=== PATIENT | female | born 1950 | race Caucasian/White ===

== ENCOUNTER 2019-10-17 12:31 | Outpatient (CLI) | payer MEDICARE, OTHER, SELFPAY ==
--- NOTE | 2019-10-17 13:00 | CT_ITS ---
WS: [id number] CT CERVICAL MYELOGRAM TECHNIQUE: CT of the cervical spine coronal and sagittal reformatted images post intrathecal administ ration of contrast. CLINICAL INFORMATION: NECK PAIN COMPARISON: None. DLP: 1737.[address] scans at [facility] use at least one of these dose optimization techniques: automat ed exposure control; mA and/or kV adjustment per patient size (includes targeted exams where dose is matched to clinical indication); or iterative reconstruction. FINDINGS: Straightening of the normal cervical lordosis. Osteopenia. Postoperative changes posterior cervical f usion at C3-C6 with interconnecting rods. Hardware appears in good position. No evidence of hardware loosening. Solid appearing dorsal fusion. Partial bony fusion across the C3-C4 C4-C5 and C5-C6 disc s paces. Wide dorsal laminectomy C3-C6. C2-C3: No significant disc bulging. Spinal canal and foramen are patent. Mild facet arthropathy. C3-C4: Posterior cervical fusion. Mild left greater than right bony foraminal narrowing. Spinal canal is patent. C4-C5: Posterior cervical fusion. Mild bilateral bony foraminal narrowing. Spinal canal is patent. C5-C6: Posterior cervical fusion. Mild left greater than right bony foraminal narrowing. Spinal canal is patent. C6-C7: Mild to moderate bilateral bony foraminal narrowing with osteophytic ridging. Spinal canal is patent. C7-T1: No significant disc bulging. Mild left greater than right bony foraminal narrowing. Spinal can al is patent. Mastoid air cells well aerated. No abnormal enhancement. Lung apices are well aerated. Enlarged bila teral cervical lymph nodes nonspecific but may be reactive. Visualized vertebral arteries are patent. Proximal internal carotid arteries are patent. CT/CT cervical spine w con [id number] IMPRESSION: 1. Straightening of the normal cervical lordosis. Prior postoperative changes dorsal cervical fusion C3-C6 with interconnecting rods. 2. No evidence of hardware loosening. Interconnecting rods are intact. Dorsal lateral fusion appears solid. 3. Partial bony fusion across the C3-C4 C4-C5 and C5-C6 disc spaces. 4. No significant central canal stenosis. Wide laminectomy defects C3-C6. 5. Mild to moderate multilevel bony foraminal narrowing worse at bilateral C6- 7. 6. Enlarged cervical lymph nodes along both cervical chains bilaterally nonspe cific but may be reactive. This could be followed up with neck CT. Largest lymp h node left jugulodigastric measuring 1.6 cm.
[2019-10-17 13:12] LABS: Blood Urea Nitrogen 11 mg/dL (8-23); Glomerular Filtration Rate 83.5 mL/min (90-130)
[2019-10-17] MEDS: iohexol 300 mg/mL 100 mL Btl IV (13:20)
== END 2019-10-17 12:32 | disposition home or self-care (01) ==
LOC: RADWPI 12:35
PROVIDERS: Family Provider Nurse Practitioner Family; PCP Nurse Practitioner Family; Visit Provider Nurse Practitioner Family
DX: Z98.1 Arthrodesis status (principal); M48.02 Spinal stenosis, cervical region; R59.0 Localized enlarged lymph nodes
CPT/HCPCS: 72126; 82565; 84520; Q9967

== ENCOUNTER 2019-10-28 13:58 | Outpatient (CLI) | payer MEDICARE, OTHER, SELFPAY ==
--- NOTE | 2019-10-28 14:11 | CT_ITS ---
WS: [id number] CT NECK WITH CONTRAST HISTORY: LYMPHADENOPATHY OF HEAD AND NECK, GENERALIZED ENLARGED LYMPH TECHNIQUE: Contiguous 5 mm axial images are performed through the neck with intravenous contrast. Sag ittal and coronal reformats are also submitted. All CT scans at [facility] use at least o ne of these dose optimization techniques: automated exposure control; mA and/or kV adjustment per pat ient size (includes targeted exams where dose is matched to clinical indication); or iterative recons truction. CONTRAST: CONTRAST: Omnipaque 300; 95 mL IV. DLP: 2567.83 mGycm COMPARISON: Cervical spine CT 10/17/2019. Beam hardening artifact from the patient's dental amalgam is obscuring some soft tissue detail in the posterior nasopharynx. Nasopharynx, oropharynx, hypopharynx and larynx are unremarkable. No soft tis eyal masses or abnormal enhancement. Torus tubarius and fossa of Rosenmuller and parapharyngeal fat are normal. Bilateral mildly hyperemic jugular digastric lymph nodes are identified. The largest on the LEFT melany ures 9.2 mm. RIGHT lymph node measures 8.8 mm. No increase in size. There are additional lymph nodes along the cervical chains which are much smaller. Thyroid gland and salivary glands are normally enhancing with no masses. Extensive posterior fusion hardware and laminectomy defects in the cervical spine from C3 through C6. Visualized portions of the skull base demonstrate no abnormalities. Orbits and globes are within norm al limits. No soft tissue masses. Visualized paranasal sinuses and mastoid air cells are normal. Lung apices are clear. CT/CT neck w con* [id number] IMPRESSION: 1. No neck mass identified. 2. Mildly reactive jugulodigastric lymph nodes. Similar in appearance to the p rior CT from 10/17/2019.
[2019-10-28] MEDS: iohexol 300 mg/mL 100 mL Btl IV (14:28)
== END 2019-10-28 13:59 | disposition home or self-care (01) ==
LOC: RADWPI 14:03
PROVIDERS: Family Provider Nurse Practitioner Family; PCP Nurse Practitioner Family; Visit Provider Nurse Practitioner Family
DX: Z12.31 Encounter for screening mammogram for malignant neoplasm of breast (principal)
CPT/HCPCS: 70491; Q9967

== ENCOUNTER 2020-08-18 08:27 | Outpatient (CLI) | payer MEDICARE, OTHER, SELFPAY ==
--- NOTE | 2020-08-18 08:37 | XR_ITS ---
WS: [id number] Right shoulder, 3 views, 08/18/2020 Clinical Data: M25.511 - Pain in right shoulder Comparison: None. Findings: No fractures or dislocations are seen. The AC joint is normal. The adjacent right clavicle, right sca pula and ribs are normal. The soft tissues are unremarkable. The patient has had a posterior fusion of the cervical spine. XR/XR shoulder RT min 2V* [id number] Impression: Negative right shoulder.
== END 2020-08-18 08:28 | disposition home or self-care (01) ==
LOC: RADWPI 08:31
PROVIDERS: PCP Nurse Practitioner Family; Visit Provider Nurse Practitioner Family
DX: M25.511 Pain in right shoulder (principal)
CPT/HCPCS: 73030

== ENCOUNTER → 2021-05-18 09:36 | Outpatient (BNVA) | payer MEDICARE, OTHER, SELFPAY | PROVIDERS: PCP Nurse Practitioner Family; Visit Provider Nurse Practitioner Family | DX: E03.9 Hypothyroidism, unspecified (principal); E78.5 Hyperlipidemia, unspecified; I10 Essential (primary) hypertension; K21.9 Gastro-esophageal reflux disease without esophagitis; M62.838 Other muscle spasm | CPT/HCPCS: 80053; 80061; 84443 ==

== ENCOUNTER 2021-07-26 14:31 | Outpatient (CLI) | payer MEDICARE, OTHER, SELFPAY ==
--- NOTE | 2021-07-26 14:44 | XR_ITS ---
WS: [id number] FOOT RIGHT TECHNIQUE: 3 views of the right foot CLINICAL INFORMATION: M79.671 - Pain in right foot COMPARISON: None. FINDINGS: No evidence of acute fracture or dislocation. Normal tarsal metatarsal alignment. Normal calcaneus. N ormal visualized talar dome. Osteopenia. Plantar calcaneal spurring. Degenerative narrowing at the fi rst MTP with hypertrophic spurring. XR/XR foot RT min 3V* [id number] IMPRESSION: 1. Osteopenia. No acute fractures. 2. Plantar calcaneal spurring. 3. Degenerative narrowing at the first MTP with hypertrophic spurring.
== END 2021-07-26 14:32 | disposition home or self-care (01) ==
PROVIDERS: PCP Nurse Practitioner Family; Visit Provider Nurse Practitioner Family
DX: M85.871 Other specified disorders of bone density and structure, right ankle and foot (principal); M77.31 Calcaneal spur, right foot
CPT/HCPCS: 73630

== ENCOUNTER → 2021-09-16 14:16 | Outpatient (BNVA) | payer MEDICARE, SELFPAY | PROVIDERS: PCP Nurse Practitioner Family; Referring Provider Nurse Practitioner Family; Visit Provider Podiatrist Foot & Ankle Surgery | DX: M79.671 Pain in right foot (principal) | CPT/HCPCS: 73630 ==

== ENCOUNTER 2021-09-28 14:49 | Outpatient (CLI) | payer MEDICARE, SELFPAY ==
--- NOTE | 2021-09-28 15:16 | XR_ITS ---
WS: [id number] Right hip, AP and frog-leg views, 09/28/2021 Clinical Data: M25.551 - Pain in right hip Comparison: None. Findings: No fractures or dislocations are seen. The hip joint is intact. The soft tissues are not remarkable. The adjacent pelvis is normal. XR/XR hip RT 2-3V wo/w pel* [id number] Impression: Negative right hip. Tonnis classification: grade 0: normal radiographs
--- NOTE | 2021-09-28 15:16 | XR_ITS ---
WS: [id number] Lumbar spine, 3 views, 09/28/2021 Clinical Data: M54.50 - Low back pain, unspecified Comparison: None. Findings: No compression fractures or subluxation is seen. There is degenerative disc narrowing at all the lumb ar vertebral levels. There is osteoarthritis of the vertebral bodies L1-L4. The transverse processes and SI joints are normal. There is a levoscoliosis. XR/XR lumbar spine 2-3V* [id number] Impression: 1. Osteoarthritis L1-L4. 2. Multilevel degenerative disc narrowing and levoscoliosis.
== END 2021-09-28 14:50 | disposition home or self-care (01) ==
LOC: RAD 15:12
PROVIDERS: PCP Nurse Practitioner Family; Visit Provider Nurse Practitioner Family
DX: M25.551 Pain in right hip (principal); G89.29 Other chronic pain; M47.816 Spondylosis without myelopathy or radiculopathy, lumbar region
CPT/HCPCS: 72100; 73502

== ENCOUNTER 2021-10-12 06:00 | Outpatient (RCR) | payer MEDICARE, SELFPAY | END 2021-11-01 23:59 | disposition home or self-care (01) | LOC: WPT 06:00 | PROVIDERS: PCP Nurse Practitioner Family; Referring Provider Nurse Practitioner Family; Visit Provider Nurse Practitioner Family | DX: M54.40 Lumbago with sciatica, unspecified side (principal) | CPT/HCPCS: 97110; 97161; 97530 ==

== ENCOUNTER 2021-11-02 06:00 | Outpatient (RCR) | payer MEDICARE, SELFPAY | END 2021-12-02 23:59 | disposition home or self-care (01) | LOC: WPT 06:00 | PROVIDERS: PCP Nurse Practitioner Family; Referring Provider Nurse Practitioner Family; Visit Provider Nurse Practitioner Family | DX: M54.40 Lumbago with sciatica, unspecified side (principal) | CPT/HCPCS: 97110 ==

== ENCOUNTER 2021-12-03 11:57 | Outpatient (CLI) | payer MEDICARE, SELFPAY ==
--- NOTE | 2021-12-03 11:45 | MR_ITS ---
WS: [id number] MRI LUMBAR SPINE NONCONTRAST HISTORY: M54.50 - Low back pain, unspecified COMPARISON: None available. TECHNIQUE: Sagittal and axial multisequence imaging is submitted. Facet joint arthritis encroaching into the posterior thecal sac at the C6 and C7 level with deformity . Degenerative disc disease in the lower thoracic spine and spondylosis. Mild curvature to the LEFT of the lumbar spine. Increase in the lordosis. 5 mm retrolisthesis of L1. Disc spaces are narrowed and desiccated throughout the lumbar spine. Conus terminates normally at L1. L1-L2: Diffuse annular disc bulging. There is a central disc protrusion. Encroachment into the ventra l thecal sac with mild central, bilateral subarticular recess and foraminal stenosis. L2-L3: Mild annular disc bulging and osteophytic ridging. Moderate size RIGHT paracentral disc protru shelby. Moderate ligamentum flavum hypertrophy and facet arthritis. Moderate central stenosis with encr oachment upon the traversing L3 nerve roots, RIGHT greater than LEFT. Moderate bilateral foraminal st enosis and subarticular recess stenosis. L3-L4: Moderate annular disc bulging with ligamentum flavum hypertrophy and facet arthritis. Near com plete effacement of CSF. There is additional central disc protrusion. Severe central, bilateral subar ticular recess and moderate foraminal stenosis. There is marked encroachment upon the L4 nerve root. L4-L5: Diffuse annular disc bulging and osteophytic ridging. Marked ligamentum flavum and facet arthr itis. Asymmetric ligamentum flavum hypertrophy, LEFT greater than RIGHT. Moderate encroachment into t he LEFT subarticular recess. Mild central stenosis. L5-S1: Mild annular disc bulging with ligamentum flavum hypertrophy and facet arthritis. Marked facet joint arthritis on the LEFT. MR/MR lumbar spine wo con* [id number] IMPRESSION: 1. Severe central, bilateral subarticular recess and moderate foraminal stenos is at L3-4 with significant encroachment upon the L4 nerve roots. 2. Moderate central stenosis at L2-3 with moderate bilateral foraminal subarti cular recess stenosis and nerve root encroachment. Moderate RIGHT paracentral d isc protrusion contributing to the stenosis and nerve root encroachment. 3. Mild central, bilateral subarticular recess and foraminal stenosis at L1-2. 4. Mild central stenosis at L4-5, significant encroachment upon the L5 nerve r oots.
== END 2021-12-03 11:58 | disposition home or self-care (01) ==
LOC: RAD 12:00
PROVIDERS: PCP Nurse Practitioner Family; Visit Provider Nurse Practitioner Family
DX: M48.061 Spinal stenosis, lumbar region without neurogenic claudication (principal); M51.26 Other intervertebral disc displacement, lumbar region
CPT/HCPCS: 72148

== ENCOUNTER → 2022-03-09 08:57 | Outpatient (BNVA) | payer MEDICARE, SELFPAY | PROVIDERS: PCP Nurse Practitioner Family; Visit Provider Nurse Practitioner Family | DX: E03.9 Hypothyroidism, unspecified (principal); I10 Essential (primary) hypertension | CPT/HCPCS: 80053; 80061; 84443 ==

== ENCOUNTER 2022-08-01 14:48 | Outpatient (CLI) | payer MEDICARE, SELFPAY ==
--- NOTE | 2022-08-01 15:05 | XR_ITS ---
WS: [id number] XR hip RT 2-3V wo/w pel* [id number] REASON FOR EXAM: M25.551 - Pain in right hip FINDINGS: No fracture or focal bone lesion. Mild narrowing of the hip joint. Mild to moderate subchondral sclerosis and marginal osteophytosis of the acetabulum. Osteophytosis of the femoral head. No soft tissue abnormality. Right hip joint. No significant interval change compared to 09/28/2021. XR/XR hip RT 2-3V wo/w pel* [id number] IMPRESSION: Mild to moderate osteoarthritis of the
[2022-08-01 15:49] LABS: Basophils # 0.1 10^3/uL (0.0-0.1); Basophils % 0.8 %; Eosinophils # 0.2 10^3/uL (0.0-0.8); Eosinophils % 2.7 %; Hematocrit 39.5 % (37.0-47.0); Hemoglobin 12.7 g/dL (11.5-15.3); Lymphocytes % 27.7 %; Mean Corpuscular HGB Conc 32.2 g/dL (30.0-36.0); Mean Corpuscular Hemoglobin 30.8 pg (28.0-34.0); Mean Corpuscular Volume 95.9 fl (81-99); Mean Platelet Volume 9.8 fL (7.4-10.4); Monocytes # 0.5 10^3/uL (0.2-0.9); Monocytes % 7.1 %; Neutrophils # 4.45 10^3/uL (1.8-7.7); Neutrophils % 61.3 %; Nucleated Red Blood Cells % 0 %; Platelet Count 299 10^3/cmm (130-400); Red Blood Count 4.12 10^6/uL (4.1-5.3); Red Cell Distribution Width 12.7 % (12.1-15.1); White Blood Count 7.3 10^3/uL (4.0-10.0)
== END 2022-08-01 14:49 | disposition home or self-care (01) ==
LOC: LAB 14:50
PROVIDERS: PCP Nurse Practitioner Family; Visit Provider Nurse Practitioner Family
DX: M16.11 Unilateral primary osteoarthritis, right hip
CPT/HCPCS: 73502; 85025; 86140

== ENCOUNTER → 2022-08-16 15:10 | Outpatient (BNVA) | payer MEDICARE, SELFPAY | PROVIDERS: PCP Nurse Practitioner Family; Referring Provider Nurse Practitioner Family; Visit Provider Orthopaedic Surgery | DX: M54.40 Lumbago with sciatica, unspecified side (principal); M48.062 Spinal stenosis, lumbar region with neurogenic claudication; M47.816 Spondylosis without myelopathy or radiculopathy, lumbar region; M41.9 Scoliosis, unspecified | CPT/HCPCS: 72110; 99214 ==

== ENCOUNTER 2022-08-23 06:00 | Outpatient (RCR) | payer MEDICARE, SELFPAY | END 2022-09-03 23:59 | disposition home or self-care (01) | LOC: WPT 06:00 | PROVIDERS: PCP Nurse Practitioner Family; Visit Provider Orthopaedic Surgery | DX: M54.50 Low back pain, unspecified (principal) | CPT/HCPCS: 97110; 97112; 97140; 97162; 97530 ==

== ENCOUNTER 2022-09-04 06:00 | Outpatient (RCR) | payer MEDICARE, SELFPAY | END 2022-10-04 23:59 | disposition home or self-care (01) | LOC: WPT 06:00 | PROVIDERS: PCP Nurse Practitioner Family; Visit Provider Orthopaedic Surgery | DX: M54.50 Low back pain, unspecified (principal) | CPT/HCPCS: 97110; 97112; 97140; 97530 ==

== ENCOUNTER → 2022-09-13 10:25 | Outpatient (BNVA) | payer MEDICARE, SELFPAY | PROVIDERS: PCP Nurse Practitioner Family; Visit Provider Anesthesiology Pain Medicine | DX: M48.062 Spinal stenosis, lumbar region with neurogenic claudication (principal); M79.604 Pain in right leg | CPT/HCPCS: 99204 ==

== ENCOUNTER 2022-09-27 06:55 | Emergency (ER) | payer MEDICARE, SELFPAY ==
[2022-09-27 07:07] VITALS: BP 192/117; PULSE 85; RESP 16; TEMP 36.4; O2SAT 96
--- NOTE | 2022-09-27 07:10 | ED_ITS ---
HPI - Back Pain/Injury General: Chief Complaint: Back Pain/Injury Stated Complaint: back pain Time Seen by Provider: 09/27/22 07:10 History of Present Illness: Patient is a 71-year-old female comes to the ED with acute on chronic lower back pain. Patient currently sees Dr. Lindo the orthospine specialist and Dr. Nava pain management clinic. Denies any fall or trauma to cause lower back pain. She just finished up physical therapy on back and neck step is to get injections. She thinks couple days ago she was walking around [place] for too long which caused the worsening lower back pain. Pain radiates down right leg as well. She rates it a 10 out of 10. Sitting in certain positions and certain movements causes worsening pain. Denies any cauda equina symptoms. Patient is been taking ibuprofen 800 mg and it has not been helping. Associated symptoms: Deny abdominal pain, chills, dysuria, fatigue, fever(s), hematuria, nausea or vomiting Review of Systems Const: Denies: fever(s), chills or fatigue Eyes: Denies: change in vision or eye discomfort ENMT: Denies: throat pain, odynophagia, nasal discharge or nasal congestion Card: Denies: chest pain, palpitations, edema, swelling of feet/ankles, dyspnea on exertion or orthopnea Resp: Denies: dyspnea, productive cough or non-productive cough GI: Denies: abdominal pain, nausea, vomiting, diarrhea, constipation or hematochezia : Denies: flank pain, dysuria or hematuria Musc: Reports: back pain; Denies: neck pain or extremity swelling Skin/Breast: Denies: rash or new lesions Neuro: Denies: headache(s), numbness in extremities or weakness in extremities PFS ED PFSH: Medical History (Updated 09/27/22 @ 08:24 by MARICARMEN Pryor) Cervical stenosis of spine HTN (hypertension) Hx of neck injury Hypothyroidism Surgical History Hx of neck surgery Social History Smoking and tobacco status: never smoked Alcohol intake: never Adopted: No Caregiver/support person: No Lives independently: No Household members: spouse Sexually active: Yes Current gender identity: Female Physical Exam Const: COMMON NORMALS: patient oriented x3 and alert GENERAL APPEARANCE: cooperative HENMT: COMMON NORMALS: normocephalic HEAD & SCALP: normocephalic MOUTH: Normal oral and palatal mucosa present THROAT: posterior oropharynx normal and uvula midline Neck/C-Spine: COMMON NORMALS: supple GENERAL: Yes normal visual inspection Resp: COMMON NORMALS: normal respiratory effort, No retractions, No use of accessory muscles and clear to auscultation bilaterally AUSCULTATION: clear to auscultation bilaterally Cardio: COMMON NORMALS: regular rate, regular rhythm, S1 normal heart sound present, S2 normal heart sound present, No gallops present (Cardio), No clicks present (Cardio), No murmurs present (Cardio) and Peripheral pulses 2+ throughout RATE: regular rate RHYTHM: regular rhythm HEART SOUNDS: S1 normal heart sound present and S2 normal heart sound present PERIPHERAL PULSES: Peripheral pulses 2+ throughout GI: COMMON NORMALS: Normal to inspection, nondistended, normoactive bowel sounds present, Soft to palpation, non-tender and no masses PALPATION: Yes Soft to palpation : COMMON NORMALS: Yes no CVA tenderness BLADDER/KIDNEY EXAM: Yes no CVA tenderness Back/Pelvis: COMMON NORMALS: no CVA tenderness LUMBAR SPINE/LOWER BACK: Yes pain with ROM and Yes paraspinal muscle tenderness Lumbar paraspinal muscle tenderness: bilateral Bilateral lumbar paraspinal muscle tenderness: L4 and L5 Extremity: COMMON NORMALS: normal to inspection Neuro: COMMON NORMALS: patient oriented x3 SENSORIUM/ORIENTATION: Yes alert GAIT: Yes Normal gait present Skin: GENERAL SKIN EXAM: dry skin Course Vital Signs: Vital signs: Vital Signs Temperature 97.5 F L 09/27/22 07:07 Pulse Rate 85 09/27/22 07:07 Respiratory Rate 18 09/27/22 07:37 Blood Pressure 192/117 09/27/22 07:07 Pulse Oximetry 96 09/27/22 07:07 MDM - Back Pain/Injury Medical Decision Making Patient is a 71-year-old female comes to the ED with acute on chronic lower back pain. Patient currently sees Dr. Lindo the orthospine specialist and Dr. Nava pain management clinic. Denies any fall or trauma to cause lower back pain. She just finished up physical therapy on back and neck step is to get injections. She thinks couple days ago she was walking around [facility] for too long which caused the worsening lower back pain. Pain radiates down right leg as well. She rates it a 10 out of 10. Sitting in certain positions and certain movements causes worsening pain. Denies any cauda equina symptoms. Vitals are stable. Exam shows bilateral lumbar paraspinal tenderness. Rest of exam is benign. She was given a dose of morphine, steroid and muscle relaxer. Her symptoms improved and she was stable for discharge home. She is diagnosed with lumbar radiculopathy and sent home with a prescription for muscle relaxer and Medrol Dosepak. Told to follow-up with PCP and Dr. Lindo within the next 7 to 10 days for reevaluation. Return to ED precautions given. Patient understood and agreed with plan. Discharge Plan Discharge Patient Disposition: Home Clinical Impression: Lumbar radiculopathy Condition: Stable Prescriptions: New methocarbamol 750 mg tablet 750 mg PO Q8H PRN (Reason: Muscle spasms and pain) Qty: 20 0RF methylprednisolone 4 mg tablets,dose pack See Rx Instructions .ROUTE .COMPLEX Qty: 21 0RF Rx Instructions: orally per package directions No Action alendronate 70 mg tablet See Rx Instructions .ROUTE .COMPLEX Qty: 12 1RF Dose Instruction: TAKE 1 TABLET WEEKLY Rx Instructions: TAKE 1 TABLET WEEKLY valsartan 80 mg tablet See Rx Instructions .ROUTE .COMPLEX Qty: 180 0RF Dose Instruction: TAKE 1 TABLET TWICE DAILY Rx Instructions: TAKE 1 TABLET TWICE DAILY tramadol 50 mg tablet 50 mg PO TID PRN (Reason: pain) 5 Days Qty: 15 0RF cyclobenzaprine 10 mg tablet See Rx Instructions .ROUTE .COMPLEX Qty: 180 0RF Dose Instruction: TAKE 1 TABLET 3 TIMES A DAY Rx Instructions: TAKE 1 TABLET 3 TIMES A DAY levothyroxine [Synthroid] 112 mcg tablet See Rx Instructions .ROUTE .COMPLEX Qty: 90 0RF Dose Instruction: TAKE 1 TABLET DAILY Rx Instructions: TAKE 1 TABLET DAILY omeprazole 40 mg capsule,delayed release(DR/EC) See Rx Instructions .ROUTE .COMPLEX Qty: 90 0RF Dose Instruction: TAKE 1 CAPSULE EVERY DAY Rx Instructions: TAKE 1 CAPSULE EVERY DAY ibuprofen 800 mg tablet 800 mg PO Q8H PRN (Reason: pain) 10 Days Qty: 60 0RF Discharge Orders: Discharge ED (Routine); Ordered 09/27/22 Ordered By: Augustus Driscoll Referrals: Pearl Rajan FNP [Primary Care Provider] - Discharge Diet: Regular Discharge Activity: Increase activity as tolerated Patient Instructions: Lumbar Radiculopathy (ED) Activity Restrictions/Additional Instructions: Follow-up with medical provider as directed in the next 5 to 7 days for reevaluation. Take medications as prescribed. Start taking the prescribed steroid medication tomorrow since she received a shot of steroid here in the ED today. Return to the ER or your medical provider if condition worsens. Please read and understand discharge instructions. Thank you for choosing [facility] for your healthcare needs today. Please realize this is an emergency room and that we are providing you with a medical screening exam and this may not be complete and all inclusive of all the testing and or work up that you may need to determine your ailment or severity of your illness. It is very important that you follow up as instructed or that you return to the Emergency Department should you have concerns or if your condition changes or worsens in any way. Coding Level of Care Code ED Retouching Operator for Jhoan Mckeon Exam Comprehensive
[2022-09-27 07:37] VITALS: RESP 18
[2022-09-27] MEDS: morphine 4 mg/mL SDV 1 mL IM (07:37)
[2022-09-27] MEDS: orphenadrine 30 mg/mL Inj 2 mL 60 MG IM (07:38)
== END 2022-09-27 08:42 | disposition home or self-care (01) ==
PROVIDERS: Emergency Provider Physician Assistant; PCP Nurse Practitioner Family
DX: M54.16 Radiculopathy, lumbar region (principal); I10 Essential (primary) hypertension
CPT/HCPCS: 96372; 99284; J2270; J2360; J2930

== ENCOUNTER → 2022-10-11 09:20 | Outpatient (BNVA) | payer MEDICARE, SELFPAY | PROVIDERS: PCP Nurse Practitioner Family; Visit Provider Physician Assistant | DX: M48.062 Spinal stenosis, lumbar region with neurogenic claudication (principal); M54.9 Dorsalgia, unspecified; M54.40 Lumbago with sciatica, unspecified side; M54.16 Radiculopathy, lumbar region; M51.36 Other intervertebral disc degeneration, lumbar region | CPT/HCPCS: 99214 ==

== ENCOUNTER → 2022-10-13 11:00 | Outpatient (BNVA) | payer MEDICARE, SELFPAY | PROVIDERS: PCP Nurse Practitioner Family; Visit Provider Anesthesiology Pain Medicine | DX: M54.16 Radiculopathy, lumbar region (principal); M48.062 Spinal stenosis, lumbar region with neurogenic claudication; M51.36 Other intervertebral disc degeneration, lumbar region; M79.604 Pain in right leg | CPT/HCPCS: 99215 ==

== ENCOUNTER 2022-10-26 11:23 | Outpatient (RCR) | payer MEDICARE, SELFPAY | END 2022-11-01 23:59 | disposition home or self-care (01) | LOC: WPT 11:23 | PROVIDERS: PCP Nurse Practitioner Family; Visit Provider Orthopaedic Surgery | DX: M54.50 Low back pain, unspecified (principal) | CPT/HCPCS: 97110; 97530 ==

== ENCOUNTER → 2022-11-01 13:23 | Outpatient (BNVA) | payer MEDICARE, SELFPAY | PROVIDERS: PCP Nurse Practitioner Family; Visit Provider Anesthesiology Pain Medicine | DX: M47.816 Spondylosis without myelopathy or radiculopathy, lumbar region (principal); M54.16 Radiculopathy, lumbar region | CPT/HCPCS: 64483; 64484 ==

== ENCOUNTER 2022-11-09 14:45 | Outpatient (CLI) | payer MEDICARE, SELFPAY ==
--- NOTE | 2022-11-09 15:15 | MR_ITS ---
WS: [id number] MRI LUMBAR SPINE NONCONTRAST HISTORY: Pain in back, RIGHT hip and lower extremity pain. COMPARISON: 12/03/2021 TECHNIQUE: Sagittal and axial multisequence imaging is submitted. Scoliosis and curvature cervical and thoracic spines. Prior fusion hardware in the cervical spine. Straightening of the normal lumbar lordosis. 2 to 3 mm retrolisthesis of L1 and L2. No fracture or ma rrow edema. Disc spaces are narrowed and desiccated throughout the lumbar spine similar to the prior study. Conus terminates normally at L1. L1-L2: Diffuse annular disc bulging with a small central disc protrusion. Disc encroachment upon the ventral thecal sac. Mild central, bilateral subarticular recess and foraminal stenosis. Similar to th e prior study. L2-L3: Marked annular disc bulging with a moderate size central disc protrusion. Deformity and encroa chment upon the ventral thecal sac. The disc may have increased in size since the prior study. There is severe central, subarticular recess and moderate foraminal stenosis. L3-L4: Mild annular disc bulging with ligamentum flavum and facet arthritis. Small LEFT paracentral d isc protrusion. Central stenosis and foraminal stenosis is still significant but the disc appears sma ller. Continued severe central, bilateral subarticular recess and moderate foraminal stenosis. L4-L5: Annular disc bulging with marked ligamentum flavum and facet arthritis. At least moderate cent ral and bilateral subarticular recess and foraminal stenosis. L5-S1: Mild facet and ligamentum flavum arthritis. Paravertebral soft tissues are negative. MR/MR lumbar spine wo con* [id number] IMPRESSION: 1. Severe central, subarticular recess and moderate foraminal stenosis at L2-3 . Due to combination of disc, osteophyte and facet arthritis. Central disc prot rusion appears larger than on the prior study. Significant deformity on the the jadiel sac and nerve roots. Stenosis has progressed. 2. Severe central, bilateral subarticular recess and moderate foraminal stenos is at L3-4. Similar to the prior study. 3. Moderate central and bilateral subarticular recess and foraminal stenosis L 4-5. 4. Mild central, bilateral subarticular recess and foraminal stenosis at L1-2.
== END 2022-11-09 14:46 | disposition home or self-care (01) ==
LOC: RAD 14:53
PROVIDERS: PCP Nurse Practitioner Family; Referring Provider Chiropractor; Visit Provider Physician Assistant
DX: M25.551 Pain in right hip (principal); M48.061 Spinal stenosis, lumbar region without neurogenic claudication; M51.26 Other intervertebral disc displacement, lumbar region; M25.78 Osteophyte, vertebrae
CPT/HCPCS: 72148; 99214

== ENCOUNTER → 2022-11-22 13:18 | Outpatient (BNVA) | payer MEDICARE, SELFPAY | PROVIDERS: PCP Nurse Practitioner Family; Visit Provider Physician Assistant | DX: M48.062 Spinal stenosis, lumbar region with neurogenic claudication (principal); M47.26 Other spondylosis with radiculopathy, lumbar region; M51.36 Other intervertebral disc degeneration, lumbar region | CPT/HCPCS: 99213 ==

== ENCOUNTER → 2022-11-23 09:24 | Outpatient (BNVA) | payer MEDICARE, SELFPAY | PROVIDERS: PCP Nurse Practitioner Family; Visit Provider Anesthesiology Pain Medicine | DX: M54.16 Radiculopathy, lumbar region (principal); M48.062 Spinal stenosis, lumbar region with neurogenic claudication; M51.36 Other intervertebral disc degeneration, lumbar region; M79.604 Pain in right leg | CPT/HCPCS: 99214 ==

== ENCOUNTER 2022-11-28 15:15 | Observation (INO) | payer MEDICARE, SELFPAY ==
[2022-11-25 13:03] VITALS: BMI 35.2
--- NOTE | 2022-11-25 13:50 | P.ANESASSM_ITS ---
Pre-Anesthetic Assessment Height/Weight: Height 1.63 m Weight 92.986 kg Operation Date: 11/28/22 12:45 Proposed Procedures p Lumbar Spine Decompression:L2/3 L3/4 39267/84798 M48.062(Not Applicable) - Sandro Lindo, Familial anesthetic complications: None Social No alcohol and No tobacco Exam alert, oriented x 3, clear to auscultation bilaterally and regular rate & rhythm Airway Mallampati: Class I Dentition: full CV/HEM Hypertension GI Gastroesophageal Reflux Disease Metabolic Thyroid Disease (thyroidectomy in 1970s) Anesthetic Plan ASA status: 2 Anesthesia: General Risk of > 500 ml blood loss (7ml/kg in children): No Medications/Allergies Home Medications Medication Instructions Recorded Confirmed Last Taken Type alendronate 70 mg tablet See Rx Instructions .Route 05/27/22 11/25/22 Unknown Rx .COMPLEX #12 tabs valsartan 80 mg tablet See Rx Instructions .Route 06/22/22 11/25/22 Unknown Rx .COMPLEX #180 tabs cyclobenzaprine 10 mg tablet See Rx Instructions .Route 09/08/22 11/25/22 Unknown Rx .COMPLEX #180 tabs levothyroxine 112 mcg tablet See Rx Instructions .Route 09/08/22 11/25/22 Unknown Rx (Synthroid) .COMPLEX #90 tabs omeprazole 40 mg capsule,delayed See Rx Instructions .Route 09/14/22 11/25/22 Unknown Rx release .COMPLEX #90 caps ibuprofen 800 mg tablet 800 mg PO Q8H PRN pain 10 days #60 09/23/22 11/25/22 Unknown Rx tabs tramadol 50 mg tablet 50 mg PO TID PRN pain 5 days #15 10/10/22 11/25/22 Unknown Rx tabs gabapentin 300 mg capsule 300 mg PO TID pain #90 caps 11/23/22 11/25/22 Unknown Rx tramadol 50 mg tablet 50 mg PO TID PRN pain 30 days #90 11/23/22 11/25/22 Unknown Rx tabs Allergies Allergy/AdvReac Type Severity Reaction Status Date / Time niacin Allergy Unknown Verified 11/23/22 09:39 Sulfa (Sulfonamide Allergy Unknown Verified 11/23/22 09:39 Antibiotics) wasp sting Allergy ALGY-Hives Uncoded 11/23/22 09:39 [facility] Anesthesia Medical History Cervical stenosis of spine HTN (hypertension) Hx of neck injury Hypothyroidism Surgical History Hx of neck surgery Hx of total knee replacement Total knee replacement status Social History (Updated 11/23/22 @ 09:44 by Cheyenne Solis LPN) Smoking and tobacco status: never smoked Second hand smoke exposure: No Alcohol intake: current Alcohol intake frequency: holidays/special occasions only Alcohol type: beer and wine Adopted: No Caregiver/support person: No Lives independently: No Household members: spouse Sexually active: Yes Current gender identity: Female Data Anesthesia 11/25/22 13:30 Cardiac Studies: No Data to Display
[2022-11-25 14:04] LABS: Blood Urea Nitrogen 14 mg/dL (8-23); Calcium 9.2 mg/dL (8.5-10.5); Carbon Dioxide 25 mmol/L (22-29); Chloride 103 mmol/L (98-107); Creatinine Clr Calc Pharmacy 72.3239; Glucose 91 mg/dL (65-115); Osmolality Calculated 286 mOsm/kg (285-295); Sodium 138 mmol/L (136-145)
--- NOTE | 2022-11-25 14:04 | ECG_ITS ---
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 Measurements Intervals [place] Rate: 80 P: 52 KS: 187 QRS: 34 QRSD: 92 T: 19 QT: 355 QTc: 411 Interpretive Statements SINUS RHYTHM NONSPECIFIC T-WAVE ABNORMALITY No previous ECG available for comparison Electronically Signed On 11-25-2022 23:16:43 CDT by Margie Sapp M.D. [id number]
[2022-11-28] VITALS (21 sets, daily range): BP systolic 101–181; BP diastolic 52–107; PULSE 72–97; RESP 15–18; TEMP 36.3–36.9; O2SAT 93–99
[2022-11-28] MEDS: sodium chloride 0.9% 1,000 ML 30 ML IV (09:31)
--- NOTE | 2022-11-28 09:35 | W.PM.OPSUD ---
Surgery/Procedure H&P Update DATE OF PROCEDURE: November 28, 2022 DATE H&P PERFORMED: 11/22/22 H&P UPDATE INFORMATION: I have reviewed H&P completed within last 30 days, I have examined patient prior to procedure and No changes to prior documentation PREOP DIAGNOSIS: Lumbar Stenosis PLANNED PROCEDURE: Operation Date: 11/28/22 10:25 Proposed Procedures p Lumbar Spine Decompression:L2/3 L3/4 15553/73664 M48.062(Not Applicable) - Sandro Lindo DO
[2022-11-28] MEDS: HYDROmorphone 1 mg/mL INJ 1 mL 0.5 MG IVP ×2 (09:41→13:01)
--- NOTE | 2022-11-28 09:52 | P.ANESUD_ITS ---
Pre-Anesthetic Update Pre-Anesthetic Assessment: Date of Surgery/Procedure: 11/28/22 Preop Rosmery gnosis: Lumbar Stenosis Proposed Procedure: Operation Date: 11/28/22 10:25 Proposed Procedures p Lumbar Spine Decompression:L2/3 L3/4 18180/67010 M48.062(Not Applicable) - Sandro Lindo, DO Any changes to Pre-Anesthetic Assessment?: No Last Intake: Intake Last Liquid Date 11/27/22 Last Liquid Time 11:55 Last Solid Date 11/27/22 Last Solid Time 22:00 Vitals: Temperature 97.8 F 11/28/22 09:09 Temperature Source Temporal Artery S can 11/28/22 09:09 Pulse Rate 85 11/28/22 09:09 Respiratory Rate 18 11/28/22 09:09 Blood Pressure 181/77 11/28/22 09:19 Blood Pressure Rita n 111 11/28/22 09:19 Pulse Oximetry 99 11/28/22 09:09 Oxygen Delivery Me thod 11/28/22 09:12 Exam: Pre-Anes Outpt Exam: alert, oriented x 3, clear to auscultation bilaterally and regular rate & rhythm Cardiac Studies: No Data to Display
[2022-11-28] MEDS: ceFAZolin 2,000 MG in sodium chloride 0.9% (plus) 50 ML 100 MG IV ×2 (10:07→17:36)
[2022-11-28] MEDS: lidocaine-epi 1% 20 mL INJ INJECTION (10:44)
--- NOTE | 2022-11-28 12:02 | XR_ITS ---
WS: [id number] Exam: XR lumbar spine 1V [id number] Date/Time of Exam: 11/28/2022 12:02 PM Reason For Exam: or pics There are 2 intraoperative AP C-arm images of the lower lumbar spine is submitted for evaluation. The images depict a marking device superimposing the L3 vertebral body and the L2-3 disc level. Surgi jadiel retractors are in place. No other significant finding on this limited series.
[2022-11-28] MEDS: vancomycin 1,000 MG SDV 1000 MG XX (12:06)
[2022-11-28] MEDS: fentaNYL 50 mcg/mL INJ 2mL IVP (12:36)
--- NOTE | 2022-11-28 12:39 | PM.OP ---
Operative Report Date of procedure: November 28, 2022 Pre-op diagnosis: Preop Diagnosis Lumbar Stenosis Post-op diagnosis: same Procedure done: 1. L1/2 Laminectomy with partial facetectomy with discectomy 2. L2/3 Laminectomy with partial facetectmy with discectomy 3. L3/4 Laminectomy with partial facetectomy Surgeon: Sandro Lindo Environmental Web Crawler: Emory Anguiano Environmental Web Crawler: The surgical instrument maker, Emory Anguiano, PAC was needed for his expertise under the microscope. He was important and necessary throughout the procedure to complete in a safe and timely manner. He assisted with patient positioning prepping and draping tissue retraction suctioning of the operative field protection of the dural sac and tissue closure Estimated blood loss (mL): 150 Procedure: 1. L1/2 Laminectomy with partial facetectomy with discectomy 2. L2/3 Laminectomy with partial facetectmy with discectomy 3. L3/4 Laminectomy with partial facetectomy Patient brought to the procedure after undergoing anesthesia was placed in the prone position. All areas of patient well-padded. Patient was prepped draped sterile fashion. Skin incision made over the L1-L4 level. The thoracolumbar fascia was split and subperiosteal dissection was made out to the facets of L1-2 L2-3 and L3-4. Deep retractors were placed. Attention was first brought to the L1-2 level. The laminectomy was performed using high-speed bur curved curettes and Kerrison rongeurs. Medial aspect of facet was taken down with high-speed bur curved curettes and curved curettes. Ligamentum flavum was taken down from L1-L2. The L1 nerve was traced out the L1-2 foramen bilaterally. L2 nerve was traced around the L2 pedicle. The nerve root was retracted medially discectomy was performed using knife and curved curettes and micropituitary. And the disc was irrigated out. The L2 nerve root was felt to be completely freed up after this. As well as to the L2-3 level. The laminectomies performed at L2 high-speed bur was used yesterday facet was taken down as well this is then the lamina and the medial aspect of facet joints taken down with curved curettes and Kerrison rongeurs. Ligamentum flavum was taken down from L2-L3. The L2 nerve root was traced out the L2-3 foramen. The L3 nerve was retracted disc base was identified. Again I was used to cut through the disc the culprit was used to identify the disc material removed. This was irrigated and microsurgery is removed he is to remove the disc. The L3 nerve was then traced around the pedicles. Fisher to be adequate decompressed. Next attention was brought to the L3-4 level. L3-4 level was identified and then the laminectomies from using high-speed bur And Rongeur Using and Curved Curettes. The Ligament Flavum Was Taken down from L3-L4 the Medial Aspect of Facet Joint Was Taken down with a High-Speed Bur along with a Curved Curettes. And Then the L3 Nerve Was Traced out the L3-4 Foramen and the L4 Nerve Traced out the L4 Pedicles. Wounds Irrigated Closed in Layered Fashion with 0 Vicryl 2-0 Vicryl and Monocryl Suture. Deep Drain Had Been Placed. Along with Vancomycin Powder. Sterile Dressing Applied Patient Was Transferred to the PACU in Stable Condition.
--- NOTE | 2022-11-28 15:41 | ANE.PACU2 ---
Inpatient post-anesthesia follow up: Airway intact: Yes Vital signs: Temperature 98.0 F Pulse Rate 80 Respiratory Rate 18 Blood Pressure 127/59 Pulse Oximetry 96 Oxygen Delivery Me thod Room Air Oxygen Flow Rate 3 Fraction of Inspir ed Oxygen Hydration adequate: Yes Nausea and vomiting: No Pain level: 3 Mental status: Baseline
[2022-11-28] MEDS: lactated ringers 1,000 ML 90 ML IV (15:55)
[2022-11-28] MEDS: pantoprazole DR 40 mg Tablet PO (17:36)
[2022-11-28] MEDS: gabapentin 300 mg Capsule PO ×2 (17:36→20:49)
[2022-11-28] MEDS: docusate sodium 100 mg Capsule PO (17:36)
[2022-11-28] MEDS: TRAMadol 50 mg Tablet PO (19:44)
[2022-11-28] MEDS: cyclobenzaprine 10 mg Tablet PO (20:49)
[2022-11-28] MEDS: acetaminophen 325 mg Tablet 650 MG PO (22:16)
[2022-11-29] VITALS: BP 143/72; PULSE 98; RESP 16; TEMP 36.9; O2SAT 95
[2022-11-29] MEDS: ceFAZolin 2,000 MG in sodium chloride 0.9% (plus) 50 ML 100 MG IV ×2 (01:54→10:08)
[2022-11-29] MEDS: lactated ringers 1,000 ML 90 ML IV (02:28)
[2022-11-29 04:00] VITALS: BP 157/75; PULSE 103; RESP 16; TEMP 37.2; O2SAT 92
[2022-11-29] MEDS: ondansetron 2 mg/ML SDV 2 mL 4 MG IVP (04:43)
[2022-11-29] MEDS: levothyroxine 112 mcg Tablet PO (06:00)
[2022-11-29] MEDS: HYDROcodone-acetaminophen 5-325 mg Tablet PO (06:00)
--- NOTE | 2022-11-29 06:55 | P.PN_ITS ---
Subjective Subjective: POD 1 Patient sitting up in the chair reports leg pain is much improved. Has intermittent back pain. Denies any shortness of breath, chest pain, headaches. Vitals/I&O/Wt Last Vital Signs Temp 98.9 F 11/29/22 04:00 Pulse 103 H 11/29/22 04:00 Resp 16 11/29/22 04:00 BP 157/75 11/29/22 04:00 Pulse Ox 92 11/29/22 04:00 O2 Del Method 11/28/22 16:00 O2 Flow Rate 3 11/28/22 13:45 11/28/22 11/28/22 11/29/22 14:59 22:59 06:59 Intake Total 150 / 150 1090 / 1240 999.5 / 2239.5 Output Total 950 / 950 1500 / 2450 700 / 3150 Balance -800 / -800 -410 / -1210 299.5 / -910.5 Physical Exam Narrative: Patient presents alert and oriented x3 with a good general appearance normal mood and affect. Normal coordination normal stability. Mild tenderness around the incisional site with the incision appear to be clean and dry. No signs of erythema or drainage. No signs of infection. Patient denies any fevers or chills. 5/5 motor strength both lower extremities with negative straight leg raise bilaterally. Calves are supple no medial thigh tenderness. Pulses are 2+ at the dorsalis pedis and posterior tibial region. Good capillary refill throughout normal sensation light touch both lower extremities. Urinary Catheter Management: Ayala: Cath Placed During This Visit: yes Reason for Continuing Indwelling Catheter: Acute Urinary Retention or Obstruction Urinary Catheter Date of Insertion: 11/28/22 Urinary Catheter Time of Insertion: 10:42 Data 11/25/22 13:30 A&P Assessment and plan (1) Status post lumbar laminectomy: Physical therapy work with mobilization. We will discontinue Hemovac drain and Ayala catheter. Encouraged her to continue walking program with no bending l ifting or twisting. Continue incentive spirometry at home for pulmonary toilet. We will see her back in the office in 1 week's time for a wound check. (2) DDD (degenerative disc disease), lumbar: Attestations Medical Necessity Statement*: Discharge home later this morning. Coding Level of Care Code Acute Code for Chg Fwd Diagnoses Status post lumbar laminectomy Z98.890 DDD (degenerative disc disease), lumbar M51.36
[2022-11-29 08:00] VITALS: BP 135/71; PULSE 84; RESP 17; TEMP 36.8; O2SAT 97
[2022-11-29] MEDS: cyclobenzaprine 10 mg Tablet PO (08:07)
[2022-11-29] MEDS: pantoprazole DR 40 mg Tablet PO (08:07)
[2022-11-29 08:08] VITALS: BP 157/75
[2022-11-29] MEDS: losartan 50 mg Tablet 25 MG PO (08:08)
[2022-11-29] MEDS: gabapentin 300 mg Capsule PO (08:08)
[2022-11-29] MEDS: docusate sodium 100 mg Capsule PO (08:08)
--- NOTE | 2022-11-29 08:20 | PC.PHAR ---
pt states she takes care of her own medications-pt states she is still taking valsartan 80mg bid ext med history shows last filled 06/22/22 90d/s pt states she had a build up of this medication-
--- NOTE | 2022-11-29 10:24 | PC.CHAP ---
Pastoral Care Encounter/Spiritual Assessment Type of Contact [] Declined machine bander and cellophaner visit [] Patient/Family/Request visit [] Outpatient visit [] Follow-up visit [] Physician referral [] Code/Alert [x] Routine visit [] Staff referral [] Actively dying [] Patient sleeping [] Family support [] [] Out of room [] Palliative care [] [] Receiving care in room [] Pre-surgical visit [] Trauma [] Long length of stay [] ICU visit [] Other: Relational/Emotional Strength [x] Patient feels connected with others/family/visitors/staff [] Distress [] Loneliness/isolation [] Abandonment Spirituality of Patient [x] Person of Valeri [x] Attends Episcopal of their [place]eri [x] Believes in Prayer [] Reads Bible or Islam materials [] There are Spiritual issues to be addressed [employer] Interventions [x] Prayer [] Active listening [] Non-anxious presence [x] Spiritual/emotional support [] Crisis/trauma care [] Spiritual counseling [] Bereavement support [] Provided bereavement packet [] Provided Bible/devotional materials [] Provided toy/stuffed animal, coloring book to patient or family member [] Provided Communion [] Anointing/[place] [] Salvation [x] Completed spiritual assessment [] Other: Impact on Illness or Injury [] Angry [] Fearful [] Anxious [] Often cries [] Exhaustion [] Unable to work [] Unable to attend amish [] Unable to walk/stand [] Unable to read [] Unable to drive [] Unable to eat/drink [] Unable to sleep [] Unable to be with family [] Patient intubated [] Other: Summary Time spent with patient 10 min
[2022-11-29 11:10] VITALS: BP 157/75; PULSE 84; RESP 17; TEMP 36.8; O2SAT 97
== END 2022-11-29 11:13 | disposition home or self-care (01) ==
LOC: MEDSURG 15:15
PROVIDERS: Anesthesiology; Admitting Provider Orthopaedic Surgery; PCP Nurse Practitioner Family; Visit Provider Orthopaedic Surgery
PROC: (CPT 63005; principal; 2022-11-28 09:55)
DX: M48.062 Spinal stenosis, lumbar region with neurogenic claudication (principal); I10 Essential (primary) hypertension; K21.9 Gastro-esophageal reflux disease without esophagitis; E89.0 Postprocedural hypothyroidism
CPT/HCPCS: 63047; 63048 ×2; 51702; 72020; 76000; 80048; 93005; 97116; 97161; 97165; A9281; G0378; J0690; J1100; J1170; J2405; J2704; J2710; J3010; J3370; J3490; J7030; J7120; P9045

== ENCOUNTER → 2022-12-08 13:07 | Outpatient (BNVA) | payer MEDICARE, SELFPAY | PROVIDERS: PCP Nurse Practitioner Family; Visit Provider Physician Assistant | DX: Z98.890 Other specified postprocedural states (principal) | CPT/HCPCS: 99024 ==

== ENCOUNTER → 2022-12-27 12:58 | Outpatient (BNVA) | payer MEDICARE, SELFPAY | PROVIDERS: PCP Nurse Practitioner Family; Visit Provider Physician Assistant | DX: Z98.890 Other specified postprocedural states (principal) | CPT/HCPCS: 99024 ==

== ENCOUNTER → 2023-02-23 12:44 | Outpatient (BNVA) | payer MEDICARE, SELFPAY | PROVIDERS: PCP Nurse Practitioner Family; Visit Provider Physician Assistant | DX: Z98.890 Other specified postprocedural states (principal) | CPT/HCPCS: 99024 ==

== ENCOUNTER 2023-03-06 14:46 | Outpatient (CLI) | payer MEDICARE, SELFPAY ==
--- NOTE | 2023-03-06 15:00 | XR_ITS ---
WS: [id number] SCREENING DEXA SCAN [place] CLINICAL INFORMATION: M81.0 - Age-related osteoporosis without current patholog... COMPARISON: None. FINDINGS: The LEFT forearm bone mineral density measures 0.74. This corresponds to a T score score of -1.6 and Z score of 0.3. Left femoral neck bone mineral density measures 0.816 g/cm2. This corresponds to a T score of -1.5 an d Z score of -0.7. Right femoral neck bone mineral density measures 0.802 g/cm2. This corresponds to a T score -1.6of an d Z score of -0.8. Mean femoral neck bone mineral density measures 0.809 g/cm2. This corresponds to a T score of -1.6 an d Z score of -0.7. XR/XR DEXA axial skeleton* [id number] IMPRESSION: Osteopenia LEFT forearm. Osteopenia femoral necks. Patient's FRAX calculated 10 year probability for major osteoporotic fracture i s 17.9 % and osteoporotic hip fracture is 3.5%.
== END 2023-03-06 14:47 | disposition home or self-care (01) ==
PROVIDERS: PCP Nurse Practitioner Family; Visit Provider Nurse Practitioner Family
DX: M81.0 Age-related osteoporosis without current pathological fracture (principal); M85.832 Other specified disorders of bone density and structure, left forearm; M85.88 Other specified disorders of bone density and structure, other site
CPT/HCPCS: 77080

== ENCOUNTER → 2023-04-13 08:40 | Outpatient (BNVA) | payer MEDICARE, SELFPAY | PROVIDERS: PCP Nurse Practitioner Family; Visit Provider Nurse Practitioner Family | DX: E03.9 Hypothyroidism, unspecified (principal); I10 Essential (primary) hypertension | CPT/HCPCS: 80053; 84443; 85025 ==

== ENCOUNTER → 2024-02-07 09:20 | Outpatient (BNVA) | payer MEDICARE, SELFPAY | PROVIDERS: PCP Nurse Practitioner Family; Visit Provider Nurse Practitioner Family | DX: E03.9 Hypothyroidism, unspecified (principal); E07.9 Disorder of thyroid, unspecified; I10 Essential (primary) hypertension | CPT/HCPCS: 80053; 80061; 84443; 85025 ==

== ENCOUNTER → 2024-02-08 15:19 | Outpatient (BNVA) | payer MEDICARE, SELFPAY | PROVIDERS: PCP Nurse Practitioner Family; Visit Provider Nurse Practitioner Family | DX: E03.9 Hypothyroidism, unspecified (principal); E07.9 Disorder of thyroid, unspecified; I10 Essential (primary) hypertension; R73.9 Hyperglycemia, unspecified; E11.9 Type 2 diabetes mellitus without complications | CPT/HCPCS: 83036 ==

== ENCOUNTER → 2025-07-23 10:00 | Outpatient (BNVA) | payer MEDICARE, SELFPAY | PROVIDERS: PCP Nurse Practitioner Family; Visit Provider Nurse Practitioner Family | DX: I10 Essential (primary) hypertension (principal); R53.83 Other fatigue | CPT/HCPCS: 80053; 80061; 84443; 85025 ==